=== PATIENT | female | born 1970 | race Caucasian/White ===

== ENCOUNTER 2023-06-26 08:49 | Outpatient (CLI) | payer OTHER, SELFPAY ==
--- NOTE | 2023-06-26 09:37 | W.ANESCHARGE ---
Anesthesia Charges Start Date/Time Anesthesia Start Date: 06/26/23 Stop Date/Time Anesthesia Stop Date: 06/26/23
--- NOTE | 2023-06-26 10:47 | W.ANESCHARGE ---
Anesthesia Charges Start Date/Time Anesthesia Start Date: 06/26/23 Anesthesia Start Time: 10:15 Stop Date/Time Anesthesia Stop Date: 06/26/23 Anesthesia Stop Time: 10:45
== END 2023-06-26 08:50 | disposition home or self-care (01) ==
LOC: OP CLINIC 08:53
PROVIDERS: PCP Obstetrics & Gynecology; Visit Provider Surgery
DX: Z12.11 Encounter for screening for malignant neoplasm of colon (principal); K63.5 Polyp of colon; K64.9 Unspecified hemorrhoids; Z83.719 Family history of colon polyps, unspecified
CPT/HCPCS: 00811; 45385; 88305; J2704